=== PATIENT | female | born 1950 | race Caucasian/White ===

== ENCOUNTER → 2020-11-22 15:10 | Outpatient (BNVA) | payer MEDICARE, OTHER, SELFPAY | PROVIDERS: PCP Family Medicine; Visit Provider Physician Assistant | DX: E66.9 Obesity, unspecified (principal); K29.70 Gastritis, unspecified, without bleeding; Z87.891 Personal history of nicotine dependence; Z98.84 Bariatric surgery status; Z68.32 Body mass index [BMI] 32.0-32.9, adult; Z88.8 Allergy status to other drugs, medicaments and biological substances; Z79.899 Other long term (current) drug therapy | CPT/HCPCS: 99212 ==

== ENCOUNTER 2020-11-23 07:02 | Outpatient (REF) | payer MEDICARE, OTHER, SELFPAY ==
[2020-11-23 07:47] LABS: MANUAL DIFF FLAG NO
[2020-11-23 07:51] LABS: Basophils Absolute Auto 0.1 X10*3/uL (0.0-0.2); Basophils Percent Auto 0.9 % (0-2); Eosinophils Absolute Auto 0.2 X10*3/uL (0.0-0.4); Eosinophils Percent Auto 3.2 % (0-4); Hematocrit 37.4 % (37-47); Hemoglobin 11.6 g/dl (12.0-16.0); Imm Gran Abs Auto 0.01 X10*3/uL (0.00-0.03); Imm Gran Pct Auto 0.1 % (0.0-0.4); Mean Corpuscular Hemoglobin 25.6 pg (27.0-33.0); Mean Corpuscular Volume 82.6 fL (80-98); Mean Platelet Volume 11.8 fL (9.4-12.3); Monocytes Absolute Auto 0.7 X10*3/uL (0.1-1.2); Monocytes Percent Auto 9.6 % (2-11); Neutrophils Absolute Auto 3.9 X10*3/uL (2.0-8.3); Neutrophils Percent Auto 57.2 % (45-73); Platelet Count 296 X10*3/uL (160-400); Red Blood Count 4.53 X10*6/uL (4.20-5.50); Red Cell Distribution Width 17.4 % (11.0-16.0); White Blood Count 6.9 X10*3/uL (4.8-10.8)
[2020-11-23 08:22] LABS: Estimated Average Glucose 117 mg/dL; Hemoglobin A1c % 5.7 %
[2020-11-23 08:42] LABS: Alanine Aminotransferase 13 U/L (0-31); Albumin Level 3.8 g/dL (3.5-5.0); Alkaline Phosphatase 68 U/L (39-117); Anion Gap 15 (12-20); Aspartate Amino Transferase 17 U/L (5-31); Bilirubin Total 0.3 mg/dL (0.0-1.0); Blood Urea Nitrogen 20 mg/dL (9-16); C Reactive Protein 0.04 mg/dL (< or = 0.50); Calcium 9.1 mg/dL (8.4-10.2); Carbon Dioxide 25 mmol/L (22-29); Chloride 107 mmol/L (96-108); Cholesterol 173 mg/dL; Estimated Glomerular Filt Rate > 60; Glucose Random 87 mg/dL (60-115); HDL Cholesterol 61 mg/dL; Iron 41 mcg/dL (30-160); LDL Cholesterol Calculated 94 mg/dl; Percent Iron Saturation 10 % (15-50); Potassium 4.2 mmol/L (3.3-5.1); Sodium 143 mmol/L (135-145); Total Iron Binding Capacity 420 mcg/dL (228-428); Total Protein 6.6 g/dL (6.5-8.0); Triglycerides 94 mg/dL; Unsaturated Iron Binding 379 ug/dL
[2020-11-23 08:54] LABS: Folate > 20.0 ng/mL (> or = 4.0); Vitamin B12 258 pg/mL (200-900)
[2020-11-23 09:06] LABS: Ferritin 2 ng/mL (10-250); TSH reflex Free T4 1.34 uIU/mL (0.32-4.0); Vitamin D 25-OH Total 27.7 ng/mL (>30)
[2020-11-24 18:32] LABS: Insulin Level Total 7.2 uIU/mL
[2020-11-25 05:26] LABS: Calcium (PTHI) 9.1 mg/dL (8.6-10.4); PTHI 70 pg/mL (14-64)
[2020-11-26 01:56] LABS: Zinc 90 mcg/dL (60-130)
[2020-11-28 17:06] LABS: Vitamin A 29 mcg/dL (38-98)
[2020-11-29 14:56] LABS: Vitamin B1 15 nmol/L (8-30)
== END 2020-11-23 07:03 | disposition home or self-care (01) ==
LOC: HO.LAB 07:02
PROVIDERS: PCP Family Medicine; Visit Provider Physician Assistant
DX: E66.9 Obesity, unspecified (principal); Z98.84 Bariatric surgery status
CPT/HCPCS: 36415; 80053; 80061; 82306; 82607; 82728; 82746; 83036; 83525; 83540; 83970; 84425; 84443; 84590; 84630; 85025; 86140

== ENCOUNTER → 2020-11-29 08:17 | Outpatient (BNVA) | payer MEDICARE, OTHER, SELFPAY | PROVIDERS: PCP Family Medicine; Visit Provider Physician Assistant | DX: K29.70 Gastritis, unspecified, without bleeding (principal); Z98.84 Bariatric surgery status | CPT/HCPCS: Q3014 ==

== ENCOUNTER → 2020-12-08 08:26 | Outpatient (BNVA) | payer MEDICARE, OTHER, SELFPAY | PROVIDERS: PCP Family Medicine; Visit Provider Physician Assistant | DX: E66.01 Morbid (severe) obesity due to excess calories (principal); K29.70 Gastritis, unspecified, without bleeding; Z98.84 Bariatric surgery status | CPT/HCPCS: Q3014 ==

== ENCOUNTER → 2020-12-19 08:16 | Outpatient (BNVA) | payer MEDICARE, OTHER, SELFPAY | PROVIDERS: PCP Family Medicine; Visit Provider Physician Assistant | DX: K29.70 Gastritis, unspecified, without bleeding (principal); Z98.84 Bariatric surgery status | CPT/HCPCS: Q3014 ==

== ENCOUNTER 2021-02-14 07:06 | Outpatient (REF) | payer MEDICARE, OTHER, SELFPAY ==
[2021-02-14 07:26] LABS: MANUAL DIFF FLAG NO
[2021-02-14 08:04] LABS: Basophils Absolute Auto 0.1 X10*3/uL (0.0-0.2); Eosinophils Absolute Auto 0.2 X10*3/uL (0.0-0.4); Eosinophils Percent Auto 3.2 % (0-4); Hematocrit 38.9 % (37-47); Imm Gran Abs Auto 0.02 X10*3/uL (0.00-0.03); Imm Gran Pct Auto 0.3 % (0.0-0.4); Lymphocytes Absolute Auto 1.9 X10*3/uL (1.2-4.9); Lymphocytes Percent Auto 29.8 % (20-40); Mean Corpuscular HGB Conc 30.8 g/dl (31.0-35.0); Mean Corpuscular Hemoglobin 26.2 pg (27.0-33.0); Mean Corpuscular Volume 84.9 fL (80-98); Mean Platelet Volume 11.7 fL (9.4-12.3); Monocytes Absolute Auto 0.6 X10*3/uL (0.1-1.2); Monocytes Percent Auto 9.4 % (2-11); Neutrophils Absolute Auto 3.5 X10*3/uL (2.0-8.3); Neutrophils Percent Auto 56.3 % (45-73); Platelet Count 273 X10*3/uL (160-400); Red Blood Count 4.58 X10*6/uL (4.20-5.50); Red Cell Distribution Width 18.1 % (11.0-16.0); White Blood Count 6.3 X10*3/uL (4.8-10.8)
[2021-02-14 08:11] LABS: Estimated Average Glucose 111 mg/dL; Hemoglobin A1c % 5.5 %
[2021-02-14 08:25] LABS: Alanine Aminotransferase 11 U/L (0-31); Alkaline Phosphatase 67 U/L (39-117); Anion Gap 13 (12-20); Aspartate Amino Transferase 15 U/L (5-31); Bilirubin Total 0.2 mg/dL (0.0-1.0); Blood Urea Nitrogen 15 mg/dL (9-16); C Reactive Protein 0.02 mg/dL (< or = 0.50); Calcium 9.3 mg/dL (8.4-10.2); Carbon Dioxide 27 mmol/L (22-29); Chloride 108 mmol/L (96-108); Cholesterol 174 mg/dL; Estimated Glomerular Filt Rate > 60; Glucose Random 99 mg/dL (60-115); HDL Cholesterol 70 mg/dL; Iron 37 mcg/dL (30-160); LDL Cholesterol Calculated 82 mg/dl; Percent Iron Saturation 9 % (15-50); Potassium 4.1 mmol/L (3.3-5.1); Sodium 144 mmol/L (135-145); Total Iron Binding Capacity 422 mcg/dL (228-428); Total Protein 6.8 g/dL (6.5-8.0); Triglycerides 113 mg/dL; Unsaturated Iron Binding 385 ug/dL
[2021-02-14 08:49] LABS: Ferritin 6 ng/mL (10-250); TSH reflex Free T4 3.42 uIU/mL (0.32-4.0); Vitamin D 25-OH Total 30.9 ng/mL (>30)
[2021-02-14 09:54] LABS: Folate > 20.0 ng/mL (> or = 4.0); Vitamin B12 268 pg/mL (200-900)
[2021-02-16 10:25] LABS: Calcium (PTHI) 9.2
[2021-02-16 10:41] LABS: Insulin Level Total 11.4
[2021-02-17 08:21] LABS: Zinc 76 mcg/dL (60-130)
[2021-02-19 11:01] LABS: Vitamin A 47 mcg/dL (38-98)
[2021-02-21 12:01] LABS: Vitamin B1 12 nmol/L (8-30)
== END 2021-02-14 07:07 | disposition home or self-care (01) ==
LOC: HO.LAB 07:06
PROVIDERS: PCP Family Medicine; Visit Provider Physician Assistant
DX: E66.9 Obesity, unspecified (principal); Z68.30 Body mass index [BMI] 30.0-30.9, adult; K21.9 Gastro-esophageal reflux disease without esophagitis; Z98.84 Bariatric surgery status; Z80.0 Family history of malignant neoplasm of digestive organs
CPT/HCPCS: 36415; 80053; 80061; 82306; 82607; 82728; 82746; 83036; 83525; 83540; 83970; 84425; 84443; 84590; 84630; 85025; 86140; 99212

== ENCOUNTER 2021-03-07 05:44 | Outpatient (REF) | payer MEDICARE, OTHER, SELFPAY ==
--- NOTE | ~2021-03-07 | CT_ITS ---
EXAMINATION: CT CHEST, ABDOMEN AND PELVIS WITH IV CONTRAST CLINICAL INFORMATION: Gastroesophageal reflux disease without esophagitis COMPARISON: Previous GI series and chest x-ray November 2016 and previous Doppler July 2016 TECHNIQUE: Axial images through the chest, abdomen and pelvis following oral and 85 mL Omnipaque 350 intravenous contrast. Sagittal and coronal reconstructions on the technologist workstation were performed. Dose 140+4 6 6 mg/cm FINDINGS: Chest: There are scattered areas of increased peribronchial attenuation and small peribronchial nodules in both upper lobes, right greater than left, probably representing airways disease. There are increased peripheral interstitial markings questionable for mild interstitial lung disease. The left lobe of the thyroid gland appears to have been removed. The right visualized right lobe is normal-appearing. The heart does not appear enlarged. There is a trace pericardial effusion. There is no coronary artery calcification. There is no pericardial effusion. Thoracic aorta is normal in caliber. There is question of mild wall thickening of the distal thoracic esophagus. There are surgical clips the GE junction. There is a slight outpouching of the left lateral side of the esophagus just above the surgical clips questionable for small diverticulum. These findings are new from previous CT July 2016. There is a small right diaphragmatic hernia containing fat. There is no pleural effusion or pleural thickening. There are small bilateral axillary lymph nodes, left greater than right. No chest wall mass or enlarged axillary lymph nodes are seen. There are collateral vessels seen in the left neck and upper arm and upper chest wall. Abdomen and pelvis: There is pneumobilia seen in the left lobe of the liver. The liver is otherwise unremarkable. The gallbladder has been removed. There is no biliary duct dilatation. The spleen is unremarkable. There is fatty replacement of the pancreas. The pancreas is otherwise unremarkable. The adrenal glands and kidneys are unremarkable. The bladder is not optimally distended. The bladder is otherwise unremarkable. There are postsurgical changes following gastric bypass. The small and large bowel is otherwise unremarkable. The appendix is not identified. No ascites or adenopathy is seen. There is evidence of atherosclerotic disease. No aneurysm is seen. Vascular structures are unremarkable. The uterus appears to have been removed. No pelvic mass is seen. There are degenerative changes of the spine. There are old compression fracture versus Schmorl's nodes of the L1 and L5 vertebral bodies is 2017 exam. There are degenerative changes at both hip joints. CT/CT abdomen pelvis w con IMPRESSION: Chest: New surgical clips seen at the GE junction. Mild wall thickening of the distal thoracic esophagus. Small outpouching of the left lateral wall of the distal thoracic esophagus questionable for a diverticulum. These findings are new from 2017 exam. Stable small pericardial effusion. Small right diaphragmatic hernia containing fat. Abdomen and pelvis: New postsurgical changes from gastric bypass. Pneumobilia. Post cholecystectomy. Fatty replacement of the pancreas.
[2021-03-07] MEDS: iohexoL 350 MG/ML 100 ML INFUS..BTL IV (09:48)
[2021-03-07] MEDS: Barium Sulfate Oral (Berry) 450 ML ORAL.SUSP 900 ML PO (09:49)
== END 2021-03-07 05:45 | disposition home or self-care (01) ==
LOC: HO.CT 05:44
PROVIDERS: PCP Family Medicine; Visit Provider Physician Assistant
DX: K21.9 Gastro-esophageal reflux disease without esophagitis (principal); Z98.84 Bariatric surgery status; Z80.0 Family history of malignant neoplasm of digestive organs
CPT/HCPCS: 71260; 74177; Q9967

== ENCOUNTER 2021-03-23 08:20 | Outpatient (REF) | payer MEDICARE, OTHER, SELFPAY ==
--- NOTE | ~2021-03-23 | FL_ITS ---
EXAMINATION: XR GI SERIES CLINICAL INFORMATION: Bariatric surgery status COMPARISON: 11/28/2016 TECHNIQUE: Fluoroscopic assessment of the upper GI tract was performed in various upright and supine/prone obliquities utilizing thin density barium. FINDINGS: There is normal oral bolus control and transfer with posterior tilt of the epiglottis. There may be a small lead at the anterior cervical esophagus which does not appear obstructing. The esophagus was normal in course, caliber, and contour. There was normal distensibility with no fixed segment of narrowing. No focal mucosal abnormality was identified. Moderate esophageal dysmotility was observed. Contrast passed freely across the gastroesophageal junction into the stomach. No significant hiatal hernia. Patient is status post Katy-en-Y gastric bypass. Contrast freely enters the gastric pouch and promptly passes into the jejunum. No obstruction. No abnormal dilatation. Moderate gastroesophageal reflux was observed. FLUOROSCOPY TIME: 1.1 minute DOSE AREA PRODUCT: 11.227 Gy-cm2 (mcelroy-centimeter squared) FL/FL upper GI series IMPRESSION: Status post Katy-en-Y gastric bypass. Moderate gastroesophageal reflux and esophageal dysmotility.
== END 2021-03-23 08:21 | disposition home or self-care (01) ==
LOC: HO.XRAY 08:20
PROVIDERS: PCP Family Medicine; Visit Provider Physician Assistant
DX: K21.9 Gastro-esophageal reflux disease without esophagitis (principal); Z98.84 Bariatric surgery status
CPT/HCPCS: 74240

== ENCOUNTER → 2022-12-23 07:37 | Outpatient (REF) | payer MEDICARE, OTHER, SELFPAY ==
--- NOTE | 2022-12-23 07:42 | CA_ITS ---
Transthoracic Echocardiogram Patient (Last, First, Middle): Luzma Gonzales E Gender: Female Date of : 1950 Age: 72 Procedure Date: 12/23/2022 Procedure Type: Transthoracic Echocardiogram Location: [facility] Height: 157.48 cm Weight: 80.74 kg BSA: 1.82 m2 Heart Rate: 68 bpm BP: 145 / 90 mmHg Commissioning Specialist: BRITTA Referring MD: Arlette Almodovar MD Symptoms: R01.1 CARDIAC MURMUR Study Quality: Adequate ECG Rhythm: Sinus Conclusions: - The left ventricular systolic function is normal. The visually estimated ejection fraction is between 65-70%. - The basal inferior segment is hypokinetic. - There is moderate calcification of the aortic valve. There is mild to moderate aortic valve stenosis. Findings Left Ventricle Normal left ventricular cavity size. There is normal left ventricular wall thickness. The left ventricular systolic function is normal. The visually estimated ejection fraction is between 65-70%. Diastolic function is normal for age. LV peak GLS -18.3%. Wall Motion Rest Echo Findings The basal inferior segment is hypokinetic. Right Ventricle Normal right ventricular cavity size. There is mildly decreased right ventricular systolic function. Atria Both atria are normal in size. Aortic Valve There is moderate calcification of the aortic valve. There is mild to moderate aortic valve stenosis. The mean gradient is 12 mmHg. The aortic valve area is 1.18 cm2. There is no aortic valve regurgitation. Mitral Valve The mitral valve appears normal. There is trace mitral valve regurgitation. There is no mitral valve stenosis. Pulmonic Valve The pulmonic valve is likely normal. Tricuspid Valve Normal tricuspid valve structure. There is trace tricuspid valve regurgitation. There is no evidence of pulmonary hypertension. Great Vessels The asc aorta is normal in size. Venous The inferior vena cava is normal in size and collapses greater than 50% with inspiration. Pericardium/Pleural There is a small loculated pericardial effusion overlying the left ventricle. Prior Study Comparison Changes noted compared to prior study dated: 03/08/2019. Progression of aortic valve stenosis. See comment on wall motion. Measurements 2D Linear Measurements IVSd: 1.01 0.6-0.9/0.6-1.0 cm LVIDd: 3.62 3.9-5.3/4.2-5.9 cm LVIDd Index: 1.99 2.4-3.2/2.2-3.1 cm/m2 LVIDs: 2.20 2.0-3.6 cm LVPWd: 1.00 0.7-1.1 cm LA Diam: 3.60 2.7-3.8/3.0-4.0 cm LAIDs Index: 1.98 1.5-2.3 cm/m2 LV Mass: 136.26 67-162/88-224 g LV Mass Index: 74.87 43-95/49-115 g/m2 LVOT Diam: 1.80 3.0+(-)1.3 cm 2D Systolic Function EF 4C: 70.60 >55% EF 2C: 73.40 >55% EF BiP: 72.70 >55% Mitral Valve MV Pk E: 0.80 MV PK A: 0.90 MV Decel Time: 225.00 E/A: 0.90 E'Lateral: 7.58 E'Medial: 5.78 E/E' Med: 13.80 E/E' Lat: 10.50 PHT: 66.00 MVA PHT: 3.33 Decel [place]: 3.53 Aortic Valve AoV Pk Jarred: 2.10 AoV Mn Jarred: 1.63 AoV VTI: 0.53 AoV Pk Grad: 18.00 Aov Mn Grad: 12.00 KEON Cont.VTI: 1.18 LVOT LVOT Pk Jarred: 1.20 LVOT Mn Jarred: 0.75 LVOT VTI: 0.24 LVOT Pk Grad: 6.00 LVOT Mn Grad: 3.00 LVOT Diam: 1.80 LVOT Area: 2.54 Diastolic Function MV Pk E: 0.80 MV Pk A: 0.90 E/A: 0.90 E'Medial: 5.78 E/E' Med: 13.80 E' Laterial: 7.58 E/E' Lat: 10.50 Right Ventricle TAPSE (mm): 16.10 TVS' Jarred: 11.30 Tricuspid Valve RA Press: 3.00 Great Vessels Aorta Sinus of Valsalva: 3.10 2.0-3.5 cm Ao Asc: 3.00 2.1-3.4 cm Pulmonary Valve PV Pk Jarred: 0.81 Peak PV Grad: 3.00 Updated in Other Vendor System with Status of Final Jean Rivera MD electronically signed on 12/23/2022 12:42:03 PM with status of Final
== END ==
LOC: HO.CARD 07:37
PROVIDERS: PCP Family Medicine; Visit Provider Internal Medicine Pulmonary Disease
DX: R01.1 Cardiac murmur, unspecified (principal)
CPT/HCPCS: 93306; 93356

== ENCOUNTER → 2022-12-23 07:42 | Outpatient (BNV) | payer MEDICARE, OTHER, SELFPAY | PROVIDERS: PCP Family Medicine; Visit Provider Internal Medicine | DX: I35.0 Nonrheumatic aortic (valve) stenosis (principal) | CPT/HCPCS: 93306 ==